=== PATIENT | male | born 1995 | race Asian ===

== ENCOUNTER → 2021-05-07 | Outpatient (CLI) | payer SELFPAY ==
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
== END ==
LOC: RAD 09:16
PROVIDERS: ATTEND Nurse Practitioner Primary Care
DX: S49.91XA Unspecified injury of right shoulder and upper arm, initial encounter (principal); V00.841A Fall from standing electric scooter, initial encounter
CPT/HCPCS: 73030